=== PATIENT | female | born 1990 | race Caucasian/White ===

== ENCOUNTER → 2018-01-03 | Outpatient (CLI) | payer MEDICAID ==
--- NOTE | 2018-01-03 13:28 | RADIOLOGY IMAGING REPORT ---
[place] [facility] [place] NAME: Perla Curtis : 1990 MR: [id number] V: [id number] EXAM DATE: ORDERING PHYSICIAN: JHONNY ALLRED TECHNOLOGIST: Location: [facility] Patient: Perla Curtis : 1990 Visit/Account:[id number] Date of Sevice: 01/03/2018 Exam type: OB LIMITED History: Low-lying placenta Comparison: None. Findings: There is a single fetus in viable presentation. heart rate is 139 bpm period the placenta is p osterior with the presenting edge of the placenta measuring 3.9 cm from the internal cervical os. T he cervix is long and closed IMPRESSION: 1. The placenta is posterior with the presenting edge of the placenta measuring 3.9 cm from the inte rnal cervical os Report Dictated By: Marcia Rodney MD at 01/03/2018 1:17 PM Report E-Signed By: Marcia Rodney MD at 01/03/2018 1:23 PM WSN:MAURA
== END ==
LOC: US 10:51
PROVIDERS: ATTEND Advanced Practice Midwife
DX: O44.43 Low lying placenta NOS or without hemorrhage, third trimester (principal)
CPT/HCPCS: 76815

== ENCOUNTER → 2018-02-14 | Outpatient (REF) | payer MEDICAID | LOC: ZZSENDIN 17:55 | PROVIDERS: ATTEND Advanced Practice Midwife | DX: Z34.83 Encounter for supervision of other normal pregnancy, third trimester (principal) | CPT/HCPCS: 85018; 87081 ==

== ENCOUNTER 2018-03-18 21:25 | Inpatient (IN) | payer MEDICAID ==
[~2018-03-18] VITALS: Ht 165.1 cm; Wt 68.0 kg
[2018-03-18] MEDS ORDERED: FAMOTIDINE(*) 20MG/50ML PREMIX 50 ML IVPB PRN (21:32)
[2018-03-18] MEDS ORDERED: OXYTOCIN 30 UNIT/D5LR 500 ML 500 ML IV PRN (21:32)
[2018-03-18] MEDS ORDERED: LR(*) 1000 ML BAG 1,000 ML IV SCH (21:32)
[2018-03-18] MEDS ORDERED: FLUSH 10 ML SYR IVP PRN (21:35)
[2018-03-18] MEDS ORDERED: LIDOCAINE/SOD BICARB 8.4% SYR SC PRN (21:35)
[2018-03-18] MEDS ORDERED: METOCLOPRAMIDE 10 MG/2 ML SDV IVP PRN (21:35)
[2018-03-18] MEDS ORDERED: LIDOCAINE 1% LOCAL 300 MG/30ML INJ PRN (21:35)
[2018-03-18] MEDS ORDERED: fentaNYL CITR 100 MCG/2 ML AMP IVP PRN (21:35)
--- NOTE | 2018-03-18 22:37 | History & Physical ---
History of Present Illness EDC per LMP: Mar 15, 2018 Estimated Gestational Age: 40.3 Chief Complaint Meconium fluid at attempted home History of Present Illness 28-year-old at 40w3d presents after attempting a home with a gas maker helper. She reports UCx started at 1100hrs today. She then had SROM with clear fluid at 1815hrs. Within the past hour, the fluid became meconium stained. Therefore, she presents now with her partner (Den), gas maker helper (Soni), gas maker helper student and tour counselor/friend. The patient is having painful contractions and is having a difficult time giving a history for this reason. She denies any complications to this . PNR reviewed from [facility] and [facility]. Patient started care with [facility] until 26 weeks, at which time she switched care to the gas maker helper. She is dated by LMP consistent with an 8 week ultrasound. She had normal labs. She had a marginal placenta previa, but it resolved at 29 weeks - posterior placenta. She is GBS negative. She declined glucose testing at 28 weeks. History Patient's Blood Type: O Positive Rubella Status: Immune Group B Strep Screen: Negative Obstetrical History: G1: SAB G2: SAB G3: 40wk , 2014, [facility], 7#4oz G4: 39wk , 2016, [facility], 6#14oz G5: Current Past Medical History: PMH: None PSH: None Allergies: Coded Allergies: Azithromycin (Verified Allergy, Mild, 03/18/18) Social History: Denies tobacco or alcohol use in . Review of Systems Constitutional: No Fever Eyes: No Vision Change Cardiovascular: No Chest Pain Respiratory: No Shortness of Breath Gastrointestinal: No Nausea, No Vomiting, No Diarrhea Genitourinary: No Dysuria Musculoskeletal: No Pain Psychiatric: No Depression, No Anxiety Exam General Exam Vital Signs VS reviewed General Apperance: Alert/Awake/No Acute Distress Respiratory: No Respiratory Distress, Clear to Auscultation Abdomen: Gravid - Non-Tender : Normal Musculoskeletal: No Weakness/Pain Extremities: No Cyanosis,Clubbing or Edema Integumentary: Skin Intact without Lesions or Rash Psychological: Alert & Oriented X3, Appropriate Mood & Affect Vaginal Discharge/Fluid?: Green Tinged Fluid Cervical Dialation: 3 Cervical Effacement (%): 50 Cervical Consistency: Soft Cervical Position: Mid Station: -3 Presentation: Vertex (by bedside ultrasound with RN) Uterine Contractions(Q min): 3 Uterine Contraction Strength: Strong UC Resting Tone: Soft Fetus Heart Tones: 125 Heart Tone Variabilty: Moderate FHT Accelerations: 15X15 FHT Category: I (Upon admission she had some minimal variability with occasional deceleration, these resolved with position change for now), II Medical Decision Making Pre-Admit Course Medical Record Review: Yes Assessment and Plan Problems: (1) Meconium in amniotic fluid affecting management of mother Assessment & Plan: 28-year-old at 40w3d presents after attempting a home with a gas maker helper due to meconium stained fluid. Initially, there was a category II tracing. However, this has resolved for now with position changes. The patient appears to be transitioning to active labor. I mentioned to the patient that if the heart tracing appears poor again, we may need a . However, for now we can wait and see how things move ahead. She stated "if so, we would not be friends." I assured the patient that my recommendations will be purely based on what I believe will have the safest outcome for both her and her baby. Will continue to monitor closely. (2) 40 weeks gestation of Problem Qualifiers (1) Meconium in amniotic fluid affecting management of mother: Fetus number: single or unspecified fetus Trimester: third trimester Qualified Codes: O36.8930 - Maternal care for other specified problems, third trimester, not applicable or unspecified PROSPER HUBER MD Mar 18, 2018 22:19
[2018-03-18 22:44] LABS: PLATELET COUNT, AUTOMATED 279 K/uL (150-450)
--- NOTE | 2018-03-18 23:20 | OB Delivery Note ---
Delivery Note Vaginal Delivery Type: Spont. Vaginal Delivery Delivery Date: Mar 18, 2018 Delivery Time: 23:03 Estimated Gestational Age(wks): 40.3 Labor Stage III (minutes): 3 Infant Sex: Female Notes: Pt presented at 3cm due to meconium stained fluid after SROM during attempted home with a waiter. She began transitioning and then went to complete at 2302hrs. She pushed and delivered spontaneously at 2303hours. Nuchal cord was noted. Placenta spontaneous at 2306hrs. Radiocommunications Technician in Attendence: Yes (Dr. Crenshaw) PROSPER HUBER MD Mar 18, 2018 23:20
[2018-03-18 23:40] VITALS: BP 106/64; Ht 165.1 cm; Wt 68.0 kg
[2018-03-18] MEDS ORDERED: PREN-127 PO (23:51)
[2018-03-19] MEDS ORDERED: BENZOCAINE 20% 60 ML BTL TP PRN
[2018-03-19] MEDS ORDERED: GLYCERIN/WITCH HAZEL LEAF 1 PK TOP PRN
[2018-03-19] MEDS ORDERED: LANOLIN OINT 7 GM TUBE TP PRN
[2018-03-19] MEDS ORDERED: ACETAMINOPHEN 325 MG TAB PO PRN
[2018-03-19] MEDS ORDERED: INFLUENZA VIRUS VAC 0.5ML SYR IM ONLY ONE
[2018-03-19] MEDS ORDERED: APAP/HYDROCODONE 325/5 TAB PO PRN
[2018-03-19] MEDS ORDERED: DIPHTH/TETANUS/ACEL. PERTUSSIS IM ONE
[2018-03-19] MEDS ORDERED: MEASLES,MUMP,RUBELLA VAC 0.5ML SC ONE
[2018-03-19] MEDS: IBUPROFEN 800 MG TAB PO SCH ×3 (00:32→17:18)
[2018-03-19 03:10] VITALS: BP 98/59
[2018-03-19 07:31] VITALS: BP 100/59
--- NOTE | 2018-03-19 07:59 | OB/GYN Progress Note ---
OB Subjective Progress Notes Subjective Doing well. Pain controlled with oral medications. Tolerating regular diet. Ambulating. Voiding. Normal lochia. No preeclampsia symptoms. OB Objective Physical Exam Vital Signs Date Time Temp Pulse Resp B/P (MAP) Pulse Ox O2 Delivery O2 Flow Rate FiO2 03/19/18 07:31 97.9 50 16 100/59 (73) Room Air 03/18/18 23:40 96 Intake and Output 03/19/18 06:58 Intake Total 1450 ml Balance 1450 ml Intake IV Total 1450 ml General Appearance: Alert/Awake/No Acute Distress Neurological: No Gross deficits Eyes: Normal Extraocular Movement & Vison Cardiovascular: Normal Rhythm & Peripheral Pulses Respiratory: No Respiratory Distress, Clear to Auscultation Abdomen: Soft, Non-Tender, Non-Distended, Fundus Firm Extremities: No Cyanosis,Clubbing or Edema Integumentary: Skin Intact without Lesions or Rash Psychological: Alert & Oriented X3, Appropriate Mood & Affect Result Diagram: 03/18/18 5033 Assessment and Plan Problems: (1) examination following vaginal delivery Assessment & Plan: PPD#1 s/p . Will keep until tomorrow with routine orders. PROSPER HUBER MD Mar 19, 2018 07:59
[2018-03-19] MEDS: DOCUSATE CALCIUM 240 MG CAP PO SCH ×2 (08:28→21:03)
[2018-03-19 11:35] VITALS: BP 94/57
[2018-03-19 16:02] VITALS: BP 98/62
[2018-03-19 20:00] VITALS: BP 96/54
[2018-03-20 00:11] VITALS: BP 115/58
[2018-03-20] MEDS: IBUPROFEN 800 MG TAB PO SCH ×2 (00:15→09:00)
[2018-03-20 02:45] VITALS: BP 104/58
--- NOTE | 2018-03-20 03:29 | DELIVERY NOTE ---
DELIVERY DATE: March 18, 2018 SURGEON: Anita Whitaker MD ANESTHESIA: None. PREOPERATIVE DIAGNOSIS Intrauterine at 40 weeks and 3 days, presenting with meconium-stained fluid after attempt home . POSTOPERATIVE DIAGNOSIS 1. Intrauterine at 40 weeks and 3 days, presenting with meconium- stained fluid after attempt home . 2. Delivery of a viable female at 2303 hours weighing 3254grams (7#2.8oz) and Apgars of 6 at one minute, 8 at five minutes and 9 at ten minutes. PROCEDURE Spontaneous vaginal delivery. ESTIMATED BLOOD LOSS 200 mL. INDICATIONS This patient is a 28-year-old 5, para 2-0-2-2, who presented at 40 weeks and 3 days after attempting a home with concrete float maker, due to meconium-stained fluid. She went into labor spontaneously at 1100 hours, after which time she had spontaneous rupture of membranes at 1815 hours. She then developed meconium-stained fluid later in the evening and was therefore brought to the hospital for delivery. At the time of presentation, she was noted to be 3, 50, and -3. The bedside ultrasound did confirm cephalic presentation. The patient shortly thereafter began appearing as if she were transitioning into active labor. The heart tones were waxing and waning between category 1 and category 2 tracings. In general, she was progressing well, therefore was allowed to continue to progress toward a vaginal delivery. She then was noted to be involuntarily pushing, at which time an anterior lip was noted. The patient was pushing down with the lip of the cervix coming down with the vertex. Therefore, I was able to reduce the lip of the cervix around the head, and the patient was called complete at 2302 hours. PROCEDURE The patient was properly identified and noted to be in the lithotomy position. She was asked to push and was able to deliver the 's vertex spontaneously in the AMIRA position over an intact perineum. A nuchal cord was noted and delivered around the head. The anterior shoulder delivered easily, followed by the posterior shoulder. The remainder of the infant was then easily delivered. The had spontaneous cry and spontaneous movement but was somewhat flaccid. Dr. Crenshaw was present at the time of delivery and asked for the infant to be taken for evaluation immediately due to the meconium-stained fluid. Therefore, the cord was clamped x2 and cut immediately. The infant was passed to nursing personnel in guarded condition at that time. Cord blood was then obtained and passed off the table. The placenta subsequently delivered spontaneously intact after starting Pitocin. The placenta delivered at 2306 hours. The cervix, vaginal vault, and perineum was examined and noted to have a first- degree vaginal delivery, which was hemostatic and therefore not repaired. The patient tolerated this procedure well and was able to recover in labor and delivery room with her infant. Dr. Crenshaw did evaluate the immediately after delivery, and shortly thereafter brought the infant back to Mom for [id number]. LISSETH
[2018-03-20] MEDS ORDERED: IBUP800T37 PO (08:45)
--- NOTE | 2018-03-20 08:45 | OB/GYN Progress Note ---
OB Subjective Progress Notes Subjective Doing well. Pain controlled with oral medications. Tolerating regular diet. Ambulating. Voiding. Normal lochia. No preeclampsia symptoms. OB Objective Physical Exam Vital Signs Date Time Temp Pulse Resp B/P (MAP) Pulse Ox O2 Delivery O2 Flow Rate FiO2 03/20/18 02:45 97.8 78 12 104/58 (73) 95 Room Air Intake and Output 03/20/18 06:58 Intake Total 210 ml Balance 210 ml Intake Oral 210 ml General Appearance: Alert/Awake/No Acute Distress Neurological: No Gross deficits Eyes: Normal Extraocular Movement & Vison Cardiovascular: Normal Rhythm & Peripheral Pulses Respiratory: No Respiratory Distress, Clear to Auscultation Abdomen: Soft, Non-Tender, Non-Distended, Fundus Firm Extremities: No Cyanosis,Clubbing or Edema Integumentary: Skin Intact without Lesions or Rash Psychological: Alert & Oriented X3, Appropriate Mood & Affect Result Diagram: 03/18/18 0077 Assessment and Plan Problems: (1) examination following vaginal delivery Assessment & Plan: PPD#2. Meeting milestones. Desires discharge to home today. Discussed routine expectations. Questions answered. Follow up in clinic in 2-3wks for check. PROSPER HUBER MD Mar 20, 2018 08:45
--- NOTE | 2018-03-20 08:46 | OB/GYN Discharge Summary ---
Discharge Summary Reason for Hosp/Final Diag: (1) examination following vaginal delivery Hospital Course & Plan: PPD#2. Meeting milestones. Desires discharge to home today. Discussed routine expectations. Questions answered. Follow up in clinic in 2-3wks for check. Lates Vital Signs Vital Signs Date Time Temp Pulse Resp B/P (MAP) Pulse Ox O2 Delivery O2 Flow Rate FiO2 03/20/18 02:45 97.8 78 12 104/58 (73) 95 Room Air Weight (Pounds): 150 Result Diagram: 03/18/18 2228 Condition: Improved Discharge: Home, Self Senior Care Meds Reported Medications Vits W-Ca,Fe,Fa(<1MG) ( VITAMINS) 1 Each Tablet, 1 EACH PO DA YONG, TAB 03/18/18 Follow up Referrals: [facility] - In Two Weeks @ [facility] with PROSPER HUBER MD Discharge Diet: As Tolerates Discharge Activity: Pelvic Rest PROSPER HUBER MD Mar 20, 2018 08:46
[2018-03-20 09:00] VITALS: BP 102/59
[2018-03-20] MEDS: DOCUSATE CALCIUM 240 MG CAP PO SCH (09:00)
[2018-03-20] MEDS ORDERED: INFLUENZA VIRUS VAC 0.5ML SYR IM ONLY ONE (09:00)
[2018-03-20] MEDS ORDERED: DIPHTH/TETANUS/ACEL. PERTUSSIS IM ONLY ONE (09:00)
== END 2018-03-20 10:50 | disposition home or self-care (01) | DRG 807 ==
LOC: OB 21:25
PROVIDERS: ADMIT Obstetrics & Gynecology; ATTEND Obstetrics & Gynecology
PROC: 10E0XZZ Delivery of Products of Conception, External Approach (ICD-10-PCS; principal; 2018-03-18)
DX: O77.0 Labor and delivery complicated by meconium in amniotic fluid (principal); Z37.0 Single live birth; Z3A.40 40 weeks gestation of pregnancy; Z88.1 Allergy status to other antibiotic agents; O69.81X0 Labor and delivery complicated by cord around neck, without compression, not applicable or unspecified; O70.0 First degree perineal laceration during delivery
CPT/HCPCS: 36415; 85025; 86703; 86850; 86900; 86901; J2590; J7120

== ENCOUNTER 2018-03-24 23:14 | Emergency (ER) | payer MEDICAID ==
[2018-03-18 23:40] VITALS: Wt 68.0 kg
[2018-03-24] MEDS ORDERED: NS(*) 0.9% 1000 ML BAG 1,000 ML IV ONE (23:19)
[2018-03-24] MEDS ORDERED: EMS NS 0.9%(*) 1000 ML BAG 1,000 ML IV ONE ×2 (23:30→23:35)
[2018-03-24 23:34] LABS: PLATELET COUNT, AUTOMATED 433 K/uL (150-450)
[2018-03-25] MEDS ORDERED: NS(*) 0.9% 1000 ML BAG 1,000 ML IV ONE
--- NOTE | 2018-03-25 00:42 | ER Report ---
History and Physical Time Seen By MD: 23:16 Hx. of Stated Complaint: syncope with n/v/d. post by 1 week. normal /. some mild bleeding still. felt normal today until about 6pm. HPI/ROS CHIEF COMPLAINT: Syncope 3 HISTORY OF PRESENT ILLNESS: 28-year-old female brought in by EMS, hypotensive. Patient is one week . She's been breast-feeding. She's been also having some diarrhea. She's only been drinking about 1 L per day. Patient notes no fever or chills. She denies dysuria. EMS established to peripheral IVs and administered fluid fluid boluses in route with Zofran, which improved patient's condition. Patient denies breast warmth or tenderness to suggest mastitis. She has a normal lochia. REVIEW OF SYSTEMS: Respiratory: No cough, no dyspnea. Cardiovascular: No chest pain, no palpitations. Gastrointestinal: As above Musculoskeletal: No back pain. Allergies: Coded Allergies: latex (Verified Allergy, Intermediate, ITCHING, 03/18/18) azithromycin (Verified Allergy, Mild, 03/18/18) Home Meds Active Scripts Ibuprofen (IBUPROFEN) 800 Mg Tablet, 1 TAB PO Q8H PRN for pain, #30 TAB 0 Refills TAKE WITH FOOD EVERY 8 HOURS Prov:PROSPER HUBER MD 03/20/18 Reported Medications Vits W-Ca,Fe,Fa(<1MG) ( VITAMINS) 1 Each Tablet, 1 EACH PO DAILY, TAB 03/18/18 Hx Smoking: No Smoking Status: Former Smoker Exposure to Second Hand Smoke?: No Hx Substance Use Disorder: No Hx Alcohol Use: No Constitutional Vital Sign - Last 24 Hours 03/24/18 03/24/18 03/24/18 03/24/18 23:16 23:16 23:19 23:20 Temp 97.4 Pulse 84 86 Resp 16 14 B/P (MAP) 82/51 (61) 80/56 80/56 (64) Pulse Ox 94 94 O2 Delivery Room Air 03/24/18 03/24/18 03/24/18 03/24/18 23:24 23:25 23:29 23:30 Pulse 86 84 Resp 13 13 B/P (MAP) 82/55 (64) 93/59 (70) Pulse Ox 99 99 03/24/18 03/24/18 03/24/187/18 23:32 23:34 23:39 23:44 Pulse 81 84 86 Resp 15 10 10 Pulse Ox 100 100 100 O2 Flow Rate 2.0 03/24/18 03/24/18 03/24/18 03/24/18 23:45 23:49 23:53 23:54 Pulse 81 83 Resp 13 10 B/P (MAP) 90/54 (66) 90/52 (65) Pulse Ox 100 99 03/24/18 03/25/18 03/25/18 03/25/18 23:59 00:00 00:04 00:09 Pulse 86 87 87 Resp 13 6 10 B/P (MAP) 93/54 (67) Pulse Ox 100 100 99 03/25/18 03/25/18 03/25/18 03/25/18 00:15 00:19 00:24 00:29 Pulse 87 ? Resp 8 B/P (MAP) 90/63 (72) Pulse Ox 99 03/25/18 03/25/18 03/25/18 03/25/18 00:30 00:34 00:39 00:44 Pulse 91 92 90 Resp 16 18 19 B/P (MAP) 99/58 (72) Pulse Ox 98 96 96 03/25/18 03/25/18 03/25/18 03/25/18 00:45 00:54 00:59 01:05 Pulse 89 90 85 Resp 16 12 16 B/P (MAP) 94/63 (73) 99/62 (74) Pulse Ox 96 95 93 O2 Delivery Room Air Physical Exam General Appearance: The patient is alert, has no immediate need for airway protection and no current signs of toxicity. Skin cool, pale, dry HEENT: Pupils equal and round no injection. TMs normal, oropharynx without redness or exudate Respiratory: Chest is non tender, lungs are clear to auscultation. Cardiac: regular rate and rhythm Gastrointestinal: Abdomen is soft and non tender, no masses, bowel sounds normal. Musculoskeletal: Neck: Neck is supple and non tender. Extremities have full range of motion and are non tender. Skin: No rashes or lesions. DIFFERENTIAL DIAGNOSIS: After history and physical exam differential diagnosis was considered for syncope including but not limited to vasovagal syncope, arrhythmia, dehydration, sepsis, mastitis, urinary tract infection, volume depletion, gastroenteritis and blood loss. Medical Decision Making Data Points Result Diagram: 03/24/18230903/24/182309 Laboratory Hematology Test 03/24/18 23:10 03/25/18 00:28 Red Blood Count 5.62 M/uL (4.17-5.56) Mean Corpuscular Volume 88.8 fL (80.0-96.0) Mean Corpuscular Hemoglobin 29.2 pg (26.0-33.0) Mean Corpuscular Hemoglobin Concent 32.8 g/dL (32.0-36.0) Red Cell Distribution Width 13.9 % (11.5-14.5) Mean Platelet Volume 8.5 fL (7.2-11.1) Neutrophils (%) (Auto) 85.1 % (39.4-72.5) Lymphocytes (%) (Auto) 11.1 % (17.6-49.6) Monocytes (%) (Auto) 2.4 % (4.1-12.4) Eosinophils (%) (Auto) 1.1 % (0.4-6.7) Basophils (%) (Auto) 0.3 % (0.3-1.4) Nucleated RBC Relative Count (auto) 0.0 /100WBC Neutrophils # (Auto) 11.2 K/uL (2.0-7.4) Lymphocytes # (Auto) 1.5 K/uL (1.3-3.6) Monocytes # (Auto) 0.3 K/uL (0.3-1.0) Eosinophils # (Auto) 0.1 K/uL (0.0-0.5) Basophils # (Auto) 0.0 K/uL (0.0-0.1) Nucleated RBC Absolute Count (auto) 0.00 K/uL Sodium Level 137 mmol/L (137-145) Potassium Level 3.8 mmol/L (3.5-5.0) Chloride Level 104 mmol/L (98-107) Carbon Dioxide Level 22 mmol/L (22-31) Blood Urea Nitrogen 20 mg/dl (7-18) Creatinine 0.80 mg/dl (0.52-1.04) Glomerular Filtration Rate Calc > 60.0 Random Glucose 90 mg/dl (75-110) Lactate 2.2 mmol/L (0.7-2.1) Calcium Level 9.4 mg/dl (8.4-10.2) Total Bilirubin 0.7 mg/dl (0.2-1.3) Aspartate Amino Transf (AST/SGOT) 27 U/L (0-35) Alanine Aminotransferase (ALT/SGPT) 29 U/L (0-56) Alkaline Phosphatase 106 U/L (0-126) Total Protein 8.7 g/dl (6.3-8.2) Albumin 4.5 g/dl (3.5-5.0) Urine Color Straw Urine Clarity Clear Urine pH 5.0 pH (4.8-9.5) Urine Specific [place] 1.004 Urine Protein Negative mg/dL (NEGATIVE) Urine Glucose (UA) Negative mg/dL (NEGATIVE) Urine Ketones Trace mg/dL (NEGATIVE) Urine Blood Large (NEGATIVE) Urine Nitrite Negative (NEGATIVE) Urine Bilirubin Negative (NEGATIVE) Urine Urobilinogen Negative mg/dL (0.2-1.9) Urine Leukocyte Esterase Trace (NEGATIVE) Urine RBC 3 /HPF (0-2/HPF) Urine WBC 3 /HPF (0-5/HPF) Urine Squamous Epithelial Cells Few /LPF (</=FEW) Urine Transitional Epithelial Cells Few /LPF (NONE-FEW) Urine Bacteria Few /HPF (NONE-FEW) Urine Hyaline Casts Few /LPF (NONE-FEW) Urine Mucus Few /HPF (NONE-FEW) Chemistry Test 03/24/18 23:10 03/25/18 00:28 White Blood Count 13.2 k/uL (4.5-11.0) Red Blood Count 5.62 M/uL (4.17-5.56) Hemoglobin 16.4 g/dL (12.0-16.0) Hematocrit 49.9 % (34.0-47.0) Mean Corpuscular Volume 88.8 fL (80.0-96.0) Mean Corpuscular Hemoglobin 29.2 pg (26.0-33.0) Mean Corpuscular Hemoglobin Concent 32.8 g/dL (32.0-36.0) Red Cell Distribution Width 13.9 % (11.5-14.5) Platelet Count 433 K/uL (150-450) Mean Platelet Volume 8.5 fL (7.2-11.1) Neutrophils (%) (Auto) 85.1 % (39.4-72.5) Lymphocytes (%) (Auto) 11.1 % (17.6-49.6) Monocytes (%) (Auto) 2.4 % (4.1-12.4) Eosinophils (%) (Auto) 1.1 % (0.4-6.7) Basophils (%) (Auto) 0.3 % (0.3-1.4) Nucleated RBC Relative Count (auto) 0.0 /100WBC Neutrophils # (Auto) 11.2 K/uL (2.0-7.4) Lymphocytes # (Auto) 1.5 K/uL (1.3-3.6) Monocytes # (Auto) 0.3 K/uL (0.3-1.0) Eosinophils # (Auto) 0.1 K/uL (0.0-0.5) Basophils # (Auto) 0.0 K/uL (0.0-0.1) Nucleated RBC Absolute Count (auto) 0.00 K/uL Glomerular Filtration Rate Calc > 60.0 Lactate 2.2 mmol/L (0.7-2.1) Calcium Level 9.4 mg/dl (8.4-10.2) Total Bilirubin 0.7 mg/dl (0.2-1.3) Aspartate Amino Transf (AST/SGOT) 27 U/L (0-35) Alanine Aminotransferase (ALT/SGPT) 29 U/L (0-56) Alkaline Phosphatase 106 U/L (0-126) Total Protein 8.7 g/dl (6.3-8.2) Albumin 4.5 g/dl (3.5-5.0) Urine Color Straw Urine Clarity Clear Urine pH 5.0 pH (4.8-9.5) Urine Specific [place] 1.004 Urine Protein Negative mg/dL (NEGATIVE) Urine Glucose (UA) Negative mg/dL (NEGATIVE) Urine Ketones Trace mg/dL (NEGATIVE) Urine Blood Large (NEGATIVE) Urine Nitrite Negative (NEGATIVE) Urine Bilirubin Negative (NEGATIVE) Urine Urobilinogen Negative mg/dL (0.2-1.9) Urine Leukocyte Esterase Trace (NEGATIVE) Urine RBC 3 /HPF (0-2/HPF) Urine WBC 3 /HPF (0-5/HPF) Urine Squamous Epithelial Cells Few /LPF (</=FEW) Urine Transitional Epithelial Cells Few /LPF (NONE-FEW) Urine Bacteria Few /HPF (NONE-FEW) Urine Hyaline Casts Few /LPF (NONE-FEW) Urine Mucus Few /HPF (NONE-FEW) Urinalysis Test 03/25/18 00:28 Urine Color Straw Urine Clarity Clear Urine pH 5.0 pH (4.8-9.5) Urine Specific [place] 1.004 Urine Protein Negative mg/dL (NEGATIVE) Urine Glucose (UA) Negative mg/dL (NEGATIVE) Urine Ketones Trace mg/dL (NEGATIVE) Urine Blood Large (NEGATIVE) Urine Nitrite Negative (NEGATIVE) Urine Bilirubin Negative (NEGATIVE) Urine Urobilinogen Negative mg/dL (0.2-1.9) Urine Leukocyte Esterase Trace (NEGATIVE) Urine RBC 3 /HPF (0-2/HPF) Urine WBC 3 /HPF (0-5/HPF) Urine Squamous Epithelial Cells Few /LPF (</=FEW) Urine Transitional Epithelial Cells Few /LPF (NONE-FEW) Urine Bacteria Few /HPF (NONE-FEW) Urine Hyaline Casts Few /LPF (NONE-FEW) Urine Mucus Few /HPF (NONE-FEW) ED Course/Re-evaluation Clinical Indication for ER IV: Hydration, IV Access ED Course She was admitted to an examination room. H&P was done. The differential di agnoses was considered. Patient was aggressively fluid resuscitated. White blood cell count was not grossly elevated. Her lactate was normal. Her urinalysis was negative. She responded to aggressive fluid hydration with 4 L. She is able and lead to the bathroom and urinate. She is discharged home and advised to keep her fluid intake up to 4-5 L at minimum per day. Follow-up with [facility] early next week Decision to Disposition Date: Mar 25, 2018 Decision to Disposition Time: 00:38 Depart Departure Latest Vital Signs Vital Signs Date Time Temp Pulse Resp B/P (MAP) Pulse Ox O2 Delivery O2 Flow Rate FiO2 03/25/18 01:05 85 16 99/62 (74) 93 Room Air 03/24/18 23:32 2.0 03/24/18 23:16 97.4 Impression: Primary Impression: Hypotension Additional Impressions: Syncope Normal breast feeding Diarrhea Condition: Improved Disposition: HOME OR SELF-CARE Patient Instructions: Dehydration (ED), Syncope (ED) Additional Instructions: Increase fluid intake, drink at least 8 >> 8 ounce glasses of fluid per day Follow up with your [facility] on Tuesday or Tuesday next week for recheck Problem Qualifiers Primary Impression: Hypotension Hypotension type: unspecified hypotension type Qualified Codes: I95.9 - Hypotension, unspecified Additional Impressions: Syncope Syncope type: unspecified Qualified Codes: R55 - Syncope and collapse Diarrhea Diarrhea type: unspecified type Qualified Codes: R19.7 - Diarrhea, unspecified TALA AGUILAR DO Mar 25, 2018 00:42
[2018-03-25 01:05] VITALS: BP 99/62
== END 2018-03-25 01:02 | disposition home or self-care (01) ==
LOC: ER 23:21
DX: I95.9 Hypotension, unspecified (principal); R55 Syncope and collapse; R19.7 Diarrhea, unspecified
CPT/HCPCS: 81001; 83605; 85025; 96360; 99283; J7030; 82040; 82247; 82310; 82374; 82435; 82565; 82947; 84075; 84132; 84155; 84295; 84450; 84460; 84520

== ENCOUNTER → 2018-03-24 | Outpatient (CLI) | payer MEDICAID ==
[2018-03-18 23:40] VITALS: BMI 25.0
[~2018-03-24] MED LIST: IBUP800T37 PO; PREN-127 PO
== END ==
LOC: AMB 22:40
PROVIDERS: ATTEND Nurse Practitioner
DX: R53.1 Weakness (principal); R19.7 Diarrhea, unspecified; R55 Syncope and collapse; I95.9 Hypotension, unspecified
CPT/HCPCS: A0425; A0427

== ENCOUNTER → 2018-06-16 | Outpatient (CLI) | payer MEDICAID ==
[2018-03-18 23:40] VITALS: BMI 25.0
[~2018-06-16] MED LIST changes: +NITR-105 PO
--- NOTE | 2018-06-16 15:12 | RADIOLOGY IMAGING REPORT ---
FACILITY: [facility] PATIENT NAME: Perla Curtis : 1990 MR: [id number] V: [id number] EXAM DATE: ORDERING PHYSICIAN: JOSEPH HERNÁNDEZ TECHNOLOGIST: Location: Patient: Perla Curtis : 1990 Visit/Account:[id number] Date of Sevice: 06/16/2018 KIDNEYS EXAMINATION: Renal ultrasound. History: Hematuria, bladder pain, back pain COMPARISON STUDIES: FINDINGS: Kidneys: Right kidney- 9.1 x 3.3 x 5.2 cm Left kidney- 10.2 x 4.7 x 4.5 cm Uniform and symmetric blood flow in each kidney by Doppler ultrasound. Hydronephrosis: none Resistive index on the right 0.54 and on the left 0.53 Bladder: Prevoid volume 236 mL. Post void residual 0.6 mL. Bilateral ureteral jets are present. Uterus appears mildly prominent at 11.9 x 4.3 x 8.3 cm although is 12 weeks Abdominal aorta and IVC: Aorta and IVC are patent by Doppler ultrasound. IMPRESSION: Unremarkable renal ultrasound. Report Dictated By: Marcia Rodney MD at 06/16/2018 3:04 PM Report E-Signed By: Marcia Rodney MD at 06/16/2018 3:06 PM WSN:MAURA
== END ==
LOC: LAB 10:58
PROVIDERS: ATTEND Urology
DX: N15.9 Renal tubulo-interstitial disease, unspecified (principal); R31.9 Hematuria, unspecified; B96.20 Unspecified Escherichia coli [E. coli] as the cause of diseases classified elsewhere
CPT/HCPCS: 76705; 81001; 87077; 87088; 87186